=== PATIENT | female | born 1985 | race Two or more races ===

== ENCOUNTER 2017-10-18 07:13 | Emergency (ER) | payer OTHER ==
[2017-10-18] MEDS: IBUPROFEN 600 MG TABLET. PO (07:58)
[2017-10-18 08:12] LABS: NEGATIVE OBC STREP NEG; POSITIVE OBC STREP POS
== END 2017-10-18 08:13 | disposition home or self-care (01) ==
LOC: ER 07:13
DX: J02.9 Acute pharyngitis, unspecified (principal)
CPT/HCPCS: 87070; 87880; 99283

== ENCOUNTER → 2018-03-10 | Outpatient (CLI) | payer OTHER ==
[2017-10-18 07:38] VITALS: BP 124/84
--- NOTE | 2018-03-10 16:27 | RAD ---
Complete abdominal ultrasound 03/10/2018 3:58 PM Clinical History: RUQ PAIN Technique: Ultrasound examination of the abdomen was performed, and multiple static images were submitted for review. Comparison: None Findings: The visualized portions of the pancreas are grossly unremarkable. Visualized portions of the aorta and IVC are unremarkable. The liver measures 15 cm longitudinally which is within normal limits. No focal hepatic abnormalities are identified on provided imaging. Liver echotexture is within normal limits. The common bile duct measures 2 mm in diameter which is normal. The gallbladder is contracted. This limits evaluation of wall thickening. Gross evidence of wall thickening is not identified. The right kidney measures 10.7 cm in length. Right kidney is no renal appearance otherwise. Spleen is normal in size measuring approximately 8 cm in length. Left kidney is somewhat poorly visualized but measures approximately 11 cm longitudinally which is within normal limits. Limited visualization of the right lower quadrant is grossly unremarkable. IMPRESSION: 1.Contracted gallbladder. No gross cholelithiasis is identified. 2. Otherwise unremarkable abdominal sonogram Electronically signed by: Santosh Presley MD (03/10/2018 4:23 PM) [id number]
== END | disposition home or self-care (01) ==
LOC: US 15:48
PROVIDERS: ATTEND Nurse Practitioner Family
DX: R10.11 Right upper quadrant pain (principal)
CPT/HCPCS: 76700

== ENCOUNTER → 2018-04-02 | Outpatient (CLI) | payer OTHER ==
[2017-10-18 07:38] VITALS: BP 124/84
--- NOTE | 2018-04-02 17:00 | RAD ---
Hepatobiliary scan with gallbladder ejection fraction Clinical indications: Right upper quadrant pain for 6 months. COMPARISON: No previous hepatobiliary scan. Abdomen ultrasound study dated March 10, 2018. TECHNIQUE: After IV infusion of 5.5 mCi of technetium 99m Choletec, anterior planar images of the upper abdomen were performed in sequential fashion and a time/activity curve was generated. The patient consumed 8 ounces of Boost drink and a gallbladder ejection fraction was measured and calculated. FINDINGS: Homogeneous uptake is seen throughout the liver. Radiotracer activity is seen within the gallbladder by 11 minutes. Radiotracer activity is seen within the duodenum by 21 minutes. Gallbladder ejection fraction is measured and calculated to be 33%. Normal is greater than 35%. Therefore this is low. IMPRESSION: The cystic duct is patent. Low gallbladder ejection fraction of 33%. Electronically signed by: Cristian Mujica MD (04/02/2018 4:56 PM) [id number]
== END | disposition home or self-care (01) ==
LOC: NM 07:31
PROVIDERS: ATTEND Surgery
DX: R10.11 Right upper quadrant pain (principal)
CPT/HCPCS: 78227; A9537